=== PATIENT | female | born 1980 | race Caucasian/White ===

== ENCOUNTER → 2021-01-08 | Outpatient (CLI) | payer OTHER ==
--- NOTE | 2021-01-09 12:27 | MM ---
Reason for exam: screening (asymptomatic). Baseline mammogram. History: Took hormonal contraceptives for 16 years beginning at age 15. Physical Findings: Nurse did not find any significant physical abnormalities on exam. MG 3D Screening Mammo W/Cad Bilateral CC, MLO, and XCCL view(s) were taken. There are scattered fibroglandular densities. There is no discrete abnormality including area of concern marked on left. These results were verbally communicated with the patient and result sheet given to the patient on 01/08/21. ASSESSMENT: Incomplete: need additional imaging evaluation, BI-RAD 0 RECOMMENDATION: Ultrasound of the left breast.
--- NOTE | 2021-01-09 12:28 | USB ---
Reason for exam: additional evaluation requested from abnormal screening. History: Took hormonal contraceptives for 16 years beginning at age 15. Physical Findings: Breast exam preformed at baseline screening. US Breast Workup Limited LT Left limited breast ultrasound including focal area of concern, retroareolar and axilla demonstrates no cystic or solid lesion seen. These results were verbally communicated with the patient and result sheet given to the patient on 01/08/21. ASSESSMENT: Negative, BI-RAD 1 RECOMMENDATION: Return to routine screening mammogram schedule for both breasts.
== END | disposition home or self-care (01) ==
LOC: RADMAMWWP 12:47
PROVIDERS: ATTEND Family Medicine
DX: Z12.31 Encounter for screening mammogram for malignant neoplasm of breast (principal); R92.8 Other abnormal and inconclusive findings on diagnostic imaging of breast
CPT/HCPCS: 77063; 77067

== ENCOUNTER → 2021-05-15 | Outpatient (CLI) | payer OTHER ==
--- NOTE | 2021-05-16 07:23 | XR ---
EXAMINATION TYPE: XR foot limited RT DATE OF EXAM: 05/15/2021 CLINICAL HISTORY: pain TECHNIQUE: Frontal, lateral images of the right foot are obtained. COMPARISON: None. FINDINGS: There is no acute fracture/dislocation evident. The joint spaces appear within normal castellon its. The overlying soft tissue appears unremarkable. IMPRESSION: There is no acute fracture or dislocation. ICD 10 NO FRACTURE, INITIAL EVALUATION
== END | disposition home or self-care (01) ==
LOC: RADXRMAIN 17:31
PROVIDERS: ATTEND Family Medicine
DX: M79.671 Pain in right foot (principal)

== ENCOUNTER → 2023-06-10 | Outpatient (CLI) | payer OTHER ==
--- NOTE | 2023-06-10 20:51 | XR ---
EXAMINATION TYPE: XR ankle complete LT DATE OF EXAM: 06/10/2023 COMPARISON: None HISTORY: Plantar fasciitis, pain TECHNIQUE: 3 view left ankle FINDINGS: The ankle mortise is intact. Soft tissues are slightly prominent over the medial malleolus. No acute fracture or dislocation is evident. Achilles tendon and plantar calcaneal heel spurs are present. IMPRESSION: 1. Calcaneal heel spurs left calcaneus.
--- NOTE | 2023-06-10 20:54 | XR ---
EXAMINATION TYPE: XR Hip Bilateral and AP pelvis DATE OF EXAM: 06/10/2023 COMPARISON: None HISTORY: Bilateral hip pain TECHNIQUE: AP pelvis and two-view bilateral hips FINDINGS: Femoral heads articulate with the acetabulum. Joint spaces are preserved. Symphysis pubis a nd sacroiliac joints are normal. No acute fracture or dislocation is evident. Follow up exams can be performed as clinically indicated IMPRESSION: 1. No acute osseous abnormality AP pelvis and bilateral hips
--- NOTE | 2023-06-10 20:55 | XR ---
EXAMINATION TYPE: XR lumbar spine 2 or 3V DATE OF EXAM: 06/10/2023 COMPARISON: None HISTORY: Low back pain TECHNIQUE: 3 view lumbar spine FINDINGS: There are 5 lumbar-type vertebral bodies. Pedicles are intact. Disc heights are preserved. Vertebral body heights are preserved. Alignment is normal. IMPRESSION: 1. Unremarkable 3 view lumbar spine
--- NOTE | 2023-06-10 20:56 | XR ---
EXAMINATION TYPE: XR foot complete LT DATE OF EXAM: 06/10/2023 COMPARISON: None HISTORY: History of plantar fasciitis TECHNIQUE: 3 view left foot FINDINGS: No acute fracture or dislocation is evident. Joint spaces are preserved. Soft tissues appea r normal. Plantar and Achilles tendon calcaneal heel spurs are present. IMPRESSION: 1. Left calcaneal heel spurs
== END | disposition home or self-care (01) ==
LOC: RADXRMAIN 11:16
PROVIDERS: ATTEND Family Medicine
DX: M77.32 Calcaneal spur, left foot (principal); M25.551 Pain in right hip; M25.552 Pain in left hip; M54.50 Low back pain, unspecified; M72.2 Plantar fascial fibromatosis
CPT/HCPCS: 72100; 73521

== ENCOUNTER → 2023-12-27 | Outpatient (CLI) | payer OTHER ==
--- NOTE | 2023-12-27 10:21 | MM ---
Reason for Exam: Screening (asymptomatic). Last mammogram was performed 3 year(s) and 0 month(s) ago. Patient History: Menarche at age 10. First Full-Term at age 28. Patient has history of breast feeding. Hormonal Contraceptives for 16 years from age 15 until age 34. Last menstrual period: 11/14/2023 Risk Values: Jayla 5 year model risk: 0.9%. NCI Lifetime model risk: 11.8%. Prior Study Comparison: 01/08/2021 Bilateral Screening Mammogram, [facility]. Tissue Density: There are scattered areas of fibroglandular density. Findings: Analyzed By CAD. Right breast: There is no suspicious group of microcalcifications or new suspicious mass. Left breast: There is no suspicious group of microcalcifications or new suspicious mass. Overall Assessment: Negative, BI-RAD 1 Management: Screening Mammogram of both breasts in [address] [facility] will attempt to contact patient to return for supplemental views and ultrasound if indicated. Patient should continue monthly self-breast exams. A clinical breast exam by your physician is recommended on an annual basis. This exam should not preclude additional follow-up of suspicious palpable abnormalities. Note on Jayla scores and lifetime risk: 1. A Jayla score greater than 3% is considered moderate risk. If this is the case, consider specialist referral to assess eligibility for a risk reducing agent. 2. If overall lifetime risk for the development of breast cancer is 20% or higher, the patient may qualify for future screening with alternating mammogram and breast MRI. [facility], , 12/27/2023 10:16 AM. Electronically signed and approved by: Amaury New DO
== END | disposition home or self-care (01) ==
LOC: RADMAMWWP 07:10
PROVIDERS: ATTEND Family Medicine
CPT/HCPCS: 77063; 77067